=== PATIENT | female | born 1965 | race Caucasian/White ===

== ENCOUNTER 2018-08-13 16:40 | Emergency (ER) | payer MEDICAID ==
[~2018-08-13] VITALS: Ht 165.1 cm; Wt 91.8 kg
[2018-08-13 16:49] VITALS: Ht 165.1 cm; Wt 91.8 kg
[2018-08-13] MEDS ORDERED: SYNTHROID25 MCG PO (16:52)
[2018-08-13 17:28] LABS: BASOPHILS 0 % (0-2); HEMATOCRIT 37.8 % (36.0-48.0); IMMATURE GRANULOCYTES 0.1 % (0-5); LYMPHOCYTES 44.1 % (15-50); MCH 29.1 pg (26.0-34.0); MCHC 34.4 g/dL (31.0-37.0); MCV 84.8 fL (80.0-100.0); MEAN PLATELET VOLUME 10.5 fL (7.4-10.4); MONOCYTES 5.9 % (2-11); NEUTROPHILS 48.9 % (40-80); PLATELET COUNT 259 10x3/uL (130-400); RBC 4.46 10x6/uL (4.00-5.40); RDW 12.9 % (11.5-14.5); WBC 6.8 10x3/uL (4.8-10.8)
[2018-08-13 17:46] LABS: ALBUMIN 3.8 g/dL (3.4-5.0); ALKALINE PHOSPHATASE 138 U/L (46-116); ALT (SGPT) 25 U/L (10-68); BILIRUBIN - TOTAL 0.39 mg/dL (0.2-1.3); CALC OSMOLALITY 276 mosm/kg (275-300); CALCIUM 9.1 mg/dL (8.5-10.1); CHLORIDE - SERUM 103 mmol/L (98-107); CREATININE - SERUM 0.8 mg/dL (0.6-1.3); GLUCOSE 91 mg/dL (74-106); POTASSIUM - SERUM 3.3 mmol/L (3.5-5.1); PROTEIN - SERUM 7.8 g/dL (6.4-8.2); SODIUM 140 mmol/L (136-145); UREA NITROGEN 7 mg/dL (7-18); eGFR NON AFRICAN AMERICAN 80 mL/min (90-120)
[2018-08-13 17:55] LABS: CREATINE KINASE 100 UL (21-215)
[2018-08-13 17:56] LABS: TROPONIN-I < 0.017 ng/mL (0.000-0.060)
[2018-08-13] MEDS ORDERED: TORADOL10 MG PO (19:56)
[2018-08-13 20:40] VITALS: BP 132/89
== END 2018-08-13 20:40 | disposition home or self-care (01) ==
LOC: D.ER 16:40
PROVIDERS: Emergency Medicine
DX: R07.81 Pleurodynia (principal); E87.6 Hypokalemia